=== PATIENT | male | born 1970 | race Caucasian/White ===

== ENCOUNTER → 2017-10-30 | Outpatient (POV) | payer BC, SELFPAY | PROVIDERS: Visit Provider Internal Medicine | DX: Y99.9 Unspecified external cause status (principal) ==

== ENCOUNTER → 2020-04-26 07:47 | Outpatient (CLI) | payer BC, SELFPAY | PROVIDERS: PCP Internal Medicine; Visit Provider Nurse Practitioner Family | DX: I42.1 Obstructive hypertrophic cardiomyopathy (principal); I34.0 Nonrheumatic mitral (valve) insufficiency; E78.2 Mixed hyperlipidemia; I10 Essential (primary) hypertension | CPT/HCPCS: 93306 ==

== ENCOUNTER → 2020-08-25 09:11 | Outpatient (CLI) | payer BC, SELFPAY ==
[2020-08-25 11:24] LABS: Alanine Aminotransferase 46 U/L (12-78); Albumin Level 4.5 g/dl (3.5-5.0); Alkaline Phosphatase 101 U/L (38-126); Anion Gap 14.4 mEq/L (5-15); Aspartate Amino Transferase 39 U/L (17-59); Bilirubin,Direct 0.2 mg/dl (0.0-0.4); Bilirubin,Indirect 0.2 mg/dL (0.0-0.9); Bilirubin,Total 0.4 mg/dl (0.2-1.3); Bilirubin,Unconjugated 0.2 mg/dL (0.0-1.1); Blood Urea Nitrogen 9 mg/dl (9-20); Calcium 9.5 mg/dl (8.4-10.2); Carbon Dioxide 29 mmol/L (22.0-30.0); Chloride 94 mmol/L (98-107); Chol/HDL Ratio 4.3 (1-3.5); Cholesterol 203 mg/dl (140-200); Estimated Glomerular Filt Rate 120 ml/min (>60); GFR (African American) 146 ML/MIN (>60); Glucose 92 mg/dl (74-100); HDL Cholesterol 47 mg/dl (40-60); Potassium 4.4 mmoL/L (3.5-5.1); Sodium 133 mmol/L (136-145); Total Protein,Serum 7.2 g/dl (6.3-8.2); Triglycerides 429 mg/dl (30-150)
[2020-08-25 11:35] LABS: Direct LDL Cholesterol 112.71 mg/dL (100-129)
== END ==
PROVIDERS: Visit Provider Urology
DX: E78.2 Mixed hyperlipidemia (principal); I10 Essential (primary) hypertension; I34.0 Nonrheumatic mitral (valve) insufficiency; I42.1 Obstructive hypertrophic cardiomyopathy
CPT/HCPCS: 36415; 80048; 80061; 80076

== ENCOUNTER → 2021-11-07 07:27 | Outpatient (CLI) | payer BC, SELFPAY | PROVIDERS: PCP Internal Medicine; Visit Provider Urology | DX: I42.1 Obstructive hypertrophic cardiomyopathy (principal); I34.0 Nonrheumatic mitral (valve) insufficiency; I10 Essential (primary) hypertension | CPT/HCPCS: 93306 ==

== ENCOUNTER → 2022-11-13 09:11 | Outpatient (CLI) | payer BC, SELFPAY ==
--- NOTE | 2022-11-13 09:14 | CA_ITS ---
APPROVED REPORT EXAM: Comprehensive 2D, Doppler, and color-flow Echocardiogram Ring Striker: Saray Prince, RCS, RVS Ht: 5 ft 10 in Wt: 207lbs BSA: 2.12 BP: 121/91 mmHg Indications: Syncope, SOa, HTN, HX-alcohol ablation: HOCM, Smoker Echo Enhancing Agent Comments: Poor acoustic window due to lung impedence 2D Dimensions IVSd 0.83 cm LVEF (Visual) 57.20 % PWd 0.85 cm LA Volume 54.90 mL LVDd 4.89 cm LA Volume Index 25.30 mL/m2 (M/F) 16-34 LVDs 3.42 cm M-Mode Dimensions RVDd 2.89 cm (0.9-2.6) LA Diam 3.38 cm (1.9-4.0) LVDd 4.98 cm (3.5-5.7) Ao Diam 3.62 cm (2.0-3.7) LVDs 3.60 cm (3.5-5.7) IVSd 0.80 cm (0.6-1.1) PWd 0.85 cm (0.6-1.1) EF (Teich) 53.50% EPSs 0.81 cm FS 27.70% EDV (Teich) 117.10 mL TAPSE 2.98 (<1.7) ESV (Teich) 54.40 mL LV Diastology E Decel Time 210.00 (160-240 msec) E/A Ratio 1.13 MED E' 7.00 (< 7 cm/sec) MED A' 10.40 cm/s E'/MED E' Ratio 15.39 (>14) LAT E' 9.50 (<10 cm/sec) LAT A' 12.70 cm/s E/LAT E' Ratio 11.34 (>14) Aortic Valve LVOT Max 165.00 (70-110 cm/s) LVOT VTI 30.95 cm AoV Peak Simon. 210.00 (50-130 cm/s) AO Peak GR. 17.60 mmHg AO Mean GR. 9.10 (<5 mmHg) AO VTI 36.91 (18-25 cm) Mitral Valve MV A Velocity 95.00 (40-130 cm/s) E/A Ratio 1.13 MV Decel. Time 210.00 (160-240 ms) MV Mean Gr. 3.00 (<2mmHg) MV PHT 60.00 ms Pulmonary Valve PV Peak Velocity 108.00 (50-150 cm/s) Tricuspid Valve TR P. Velocity 201.00 cm/s RAP Estimate 10.00 mmHg RVSP 26.20 mmHg Left Ventricle Left atrium is mildly enlarged, left ventricle is normal size, estimated ejection fraction 55%, there appears to be moderate hypokinesis involving the basal interventricular septum, there is concentric left ventricular hypertrophy, there is no intracavitary gradient seen at rest in the study. Right Ventricle Right atrium and right ventricle are normal size and contractility. Aortic Valve Aortic valve is minimally thickened and fibrosed there is no aortic stenosis or aortic insufficiency. Mitral Valve Mitral valve has dense mitral calcification, there is no mitral stenosis, there is mild mitral regurgitation, there is no obvious systolic anterior motion of the mitral valve leaflets seen. Tricuspid Valve Tricuspid valve is grossly normal, there is mild tricuspid regurgitation, tricuspid regurgitation jet velocity is inadequate for calculation of the right ventricular systolic pressure. Pulmonic Valve Pulmonic valve is poorly visualized. Great Vessels Aortic root is normal size. Inferior vena cava is not visualized. Pericardium No significant pericardial effusion noted. Conclusion 1. Mildly enlarged left atrium, normal left ventricular size, estimated ejection fraction 55%, there appears to be moderate basal septal hypokinesis, there is concentric left ventricular hypertrophy present, there is no significant gradient seen in the left ventricular outflow tract at rest. Grade 1 diastolic dysfunction seen without tissue Doppler evidence of raise left atrial pressure. 2. Mitral annular calcification, there is no mitral stenosis, there is no obvious systolic anterior motion of the mitral valve leaflets seen, there is mild mitral regurgitation. 3. Mild tricuspid regurgitation. 4. No significant pericardial effusion noted. 5. Inferior vena cava is poorly visualized. Electronically signed by : Polo Gonsalez MD 11/14/2022 06:25:43
== END ==
PROVIDERS: PCP Physician Assistant; Visit Provider Nurse Practitioner
DX: E78.2 Mixed hyperlipidemia (principal); I10 Essential (primary) hypertension; I42.1 Obstructive hypertrophic cardiomyopathy
CPT/HCPCS: 93306

== ENCOUNTER 2023-08-01 19:03 | Inpatient (IN) | payer BC, SELFPAY ==
--- NOTE | 2023-08-01 19:13 | XR_ITS ---
PROCEDURE INFORMATION: Exam: XR Chest Exam date and time: 08/01/2023 8:05 PM Age: 53 years old Clinical indication: Other: Chest pain; Patient HX: Elevated heart rate; Additional info: Nstemi TECHNIQUE: Imaging protocol: Radiologic exam of the chest. Views: 1 view. COMPARISON: No relevant prior studies available. FINDINGS: Lungs: Unremarkable. No consolidation. Pleural spaces: Unremarkable. No pleural effusion. No pneumothorax. Heart/Mediastinum: Unremarkable. No cardiomegaly. Bones/joints: Unremarkable. IMPRESSION: No acute pulmonary findings.
--- NOTE | 2023-08-01 19:21 | PC.NURSE ---
1545 received report from Mei at [facility]. 1800 [facility] called and stated pt is enroute. 1905 arrived on unit via stretcher with EMS
--- NOTE | 2023-08-01 19:33 | ECG_ITS ---
APPROVED REPORT Exam: Resting ECG HR:97 bpm ECG Measurements Heart Rate 97 AXES NM 170 P 61 QRSd 95 QRS 36 QT 332 T 76 QTc 386 Conclusion SINUS RHYTHM WITH FREQUENT VENTRICULAR PREMATURE COMPLEXES IN A BIGEMINAL PATTERN NONSPECIFIC T-WAVE ABNORMALITY ABNORMAL RHYTHM ECG UNCONFIRMED REPORT Electronically signed by : Rian Joyce MD 08/02/2023 07:49:45
[2023-08-01 19:34] VITALS: BMI 28.8
--- NOTE | 2023-08-01 19:49 | PC.NURSE ---
pt arrived to floor via ems @[id number]
--- NOTE | 2023-08-01 19:56 | EXP.HP ---
History of Present Illness *Admission Date: 08/01/23 *Reason for visit:: SVT/NSTEMI *History of present illness: 53 year old male sent to [facility] for dircet admission from the ED at [facility]. The ED physician consulted Dr. Crow and Dr. Mendiola for the direct admission. The pt states that he presented to the ED with c/o CP that radiated down his left arm. He states that last night he started to feel chills and felt sick. He went to the [employer] this afternoon to buy a thermometer to check his temperature. When he came out of the [employer] store his CP started and felt that his heart was palpating. He went to the [facility] ED and was found to be in SVT with a heart rate in the 220's. According to [facility] chart the pt was given 6mg of Adenosine without a response. Pt states a repeated dose was given but is not in chart. The patient was then given 10 mg Iv metoprolol with a HR change from 234 to 72. He was given 324 ASA and started on a heparin gtt. His post EKG was sinus tachycardia with a HR of 101. On arrival to [facility] the pt is sinus rhythm with bigeminy. He denies any chest pain. C/o coughing and wheezing. PMHX of alcohol ablation in 2018, hypertrophic obstructive cardiomyopathy, HTN, HLD, and tobacco abuse. [facility] Disclaimer: The information contained in this section may have been updated after the patient was seen, as this information can be updated by other users. Medical History (Updated 08/02/23 @ 11:13 by Sukh Mendiola MD) Colonoscopy planned HLD (hyperlipidemia) Hypertrophic obstructive cardiomyopathy (HOCM) Mitral regurgitation Family History (Updated 08/01/23 @ 19:37 by Harleen Delgado RN) Mitral regurgitation Social History (Updated 08/01/23 @ 19:39 by Harleen Delgado RN) Smoking Status: Current every day smoker tobacco type: cigarettes packs per day: 1 alcohol intake: former substance use type: denies use current occupational status: employed Travel in the last 8 weeks: Inside the [place] Review of Systems Review of Systems Review of systems:: pertinent systems reviewed and negative unless documented below Constitutional Constitutional: Reports system reviewed and no additional complaints, except as documented Eyes Eyes: Reports system reviewed and no additional complaints, except as documented ENT Ears, Nose, Mouth, and Throat: Reports system reviewed and no additional complaints, except as documented *Cardiovascular Cardiovascular: Reports chest pain with activity and Reports dyspnea on exertion *Respiratory Respiratory: Reports dyspnea on exertion *Gastrointestinal Gastrointestinal: Reports system reviewed and no additional complaints, except as documented *Genitourinary Genitourinary: Reports system reviewed and no additional complaints, except as documented *Musculoskeletal Musculoskeletal: Reports system reviewed and no additional complaints, except as documented *Neurologic Neurologic: Reports system reviewed and no additional complaints, except as documented Meds Home Medications and Allergies Home Medications Medication Instructions Recorded Confirmed Type triamterene 75 1 tab PO DAILY Fluid 05/07/18 08/01/23 History mg-hydrochlorothiazide 50 mg tablet valacyclovir 500 mg tablet 500 mg PO DAILY Infection 05/07/18 08/01/23 History atorvastatin 20 mg tablet 20 mg PO DAILY Cholesterol 07/31/18 08/01/23 History aspirin 81 mg capsule 81 mg PO DAILY Heart Health 08/01/23 08/01/23 History lisinopril 20 mg tablet 20 mg PO DAILY High Blood Pressure 08/01/23 08/02/23 History metoprolol tartrate 100 mg tablet 100 mg PO DAILY High Blood Pressure 08/01/23 08/02/23 History New Prescriptions to Start Prescriptions: Allergies Allergy/AdvReac Type Severity Reaction Status Date / Time No Known Allergies Allergy Verified 05/10/23 09:38 Exam Data for Last 24 hours I & O for Last 24 hours: Intake & Output 07/29/23 07/30/23 07/31/23 08/01/23 23:59 23:59 23:59 23
[2023-08-01 20:00] VITALS: BP 111/81; PULSE 100; PULSE 98; RESP 22; TEMP 36.9; O2SAT 95
[2023-08-01 20:34] LABS: Anion Gap 16.7 mEq/L (5-15); Blood Urea Nitrogen 10 mg/dl (9-20); Calcium 8.5 mg/dl (8.4-10.2); Carbon Dioxide 23 mmol/L (22.0-30.0); Chloride 98 mmol/L (98-107); Creatinine Clearance Estimated 161 mL/min (50-200); Estimated Glomerular Filt Rate 119 ml/min (>60); GFR (African American) 144 ML/MIN (>60); Glucose 135 mg/dl (74-100); Potassium 3.7 mmoL/L (3.5-5.1); Sodium 134 mmol/L (136-145)
[2023-08-01 20:42] LABS: NT Pro Brain Natriuretic Pep. 719 pg/mL (0-125)
[2023-08-01 20:45] LABS: Basophils # 0.1 K/mm3 (0-0.2); Basophils % 0.2 % (0.1-2.0); Eosinophils # 0.2 K/mm3 (0.0-0.4); Eosinophils % 0.5 % (0.1-12.0); Hematocrit 50.5 % (42.0-52.0); Hemoglobin 16.6 g/dL (14.1-18.0); Lymphocytes # 1.3 K/mm3 (0.7-4.5); Lymphocytes % 4.2 % (10-50); Mean Corpuscular HGB Conc 32.8 g/dL (31.8-35.4); Mean Corpuscular Hemoglobin 31.5 pg (27.0-31.2); Mean Platelet Volume 9.3 fl (7.4-10.4); Monocytes # 1.1 K/mm3 (0.1-1.0); Monocytes % 3.7 % (1.7-9.3); Neutrophils # 27.8 K/mm3 (1.8-7.8); Neutrophils % 91.4 % (37.0-80.0); Platelet Count 263 K/mm3 (142-424); Red Blood Count 5.26 M/mm3 (4.60-6.20); Red Cell Distribution Width 13.1 % (11.5-17.5); White Blood Count 30.4 K/mm3 (4.8-10.8)
[2023-08-01 20:46] LABS: PTT Heparin (inpatient only) 30.2 Seconds (23.6-34.0)
[2023-08-01 20:48] LABS: MANUAL DIFFERENTIAL MANUAL DIFFERENTIAL (MANUAL DIFF)
[2023-08-01 21:01] LABS: Lymphocytes % 9 % (10-50); Monocytes % 5 % (2-9); Neutrophils % 86 % (42-76); Platelet Estimate Normal; RBC Morphology Normal; Total Cells Counted 100
[2023-08-01 21:16] LABS: Adenovirus,PCR Not Detected (NotDetected); Bordetella Pertussis Not Detected (NotDetected); Chlamydophila Pneumoniae, PCR Not Detected (NotDetected); Coronavirus 19, PCR Not Detected (NotDetected); Coronavirus 229E Not Detected (NotDetected); Coronavirus NL63 Not Detected (NotDetected); Coronavirus OC43 Not Detected (NotDetected); Coronovirus HKU1,PCR Not Detected (NotDetected); Human Metapneumovirus Not Detected (NotDetected); Influenza A, PCR Not Detected (NotDetected); Influenza AH1, 2009 Not Detected (NotDetected); Influenza AH1, PCR Not Detected (NotDetected); Influenza AH3,PCR Not Detected (NotDetected); Influenza B, PCR Not Detected (NotDetected); Mycoplasma Pneumoniae, PCR Not Detected (NotDetected); Parainfluenza 1, PCR Not Detected (NotDetected); Parainfluenza 2, PCR Not Detected (NotDetected); Parainfluenza 3, PCR Not Detected (NotDetected); Parainfluenza 4, PCR Not Detected (NotDetected); Respiratory Syncytial Virus Not Detected (NotDetected); Rhinovirus/Enterovirus Not Detected (NotDetected)
[2023-08-01 22:00] VITALS: BP 151/67; PULSE 98; RESP 18; O2SAT 100
--- NOTE | 2023-08-01 22:43 | EXP.EVENT.NO ---
Spoke with Dr. Crow informing him of troponin of 16 and EKG ectopy. Pt remains asymptomatic. Will given additional 50 mg metoprolol tartrate and continue the hep gtt for demand ischemia.
[2023-08-01 23:03] LABS: Lactic Acid 2.3 mmol/L (0.7-2.1)
--- NOTE | 2023-08-01 23:39 | EXP.SEPSISRE ---
[facility] Tissue Perfusion Eval Sepsis Re-Evaluation Performed: Yes Date Performed: 08/01/23 Time Performed: 23:39
[2023-08-02] VITALS (25 sets, daily range): BP systolic 86–127; BP diastolic 42–87; PULSE 76–100; RESP 11–22; TEMP 36.7–37.2; O2SAT 95–99; BMI 28.5
[2023-08-02 02:45] LABS: Reflex Lactic Add Lactic Reflex
[2023-08-02 03:13] LABS: Chloride 100 mmol/L (98-107)
[2023-08-02 03:14] LABS: Potassium 3.4 mmoL/L (3.5-5.1); Sodium 131 mmol/L (136-145)
[2023-08-02 03:16] LABS: Alanine Aminotransferase 36 U/L (12-78); Albumin Level 3.3 g/dl (3.5-5.0); Albumin/Globulin Ratio 1.4 (1.1-1.8); Alkaline Phosphatase 77 U/L (38-126); Anion Gap 10.4 mEq/L (5-15); Aspartate Amino Transferase 96 U/L (17-59); Bilirubin,Total 0.4 mg/dl (0.2-1.3); Blood Urea Nitrogen 11 mg/dl (9-20); Calcium 7.7 mg/dl (8.4-10.2); Carbon Dioxide 24 mmol/L (22.0-30.0); Cholesterol 142 mg/dl (140-200); Creatinine Clearance Estimated 188 mL/min (50-200); Estimated Glomerular Filt Rate 142 ml/min (>60); GFR (African American) 172 ML/MIN (>60); Globulin 2.4 g/dL (1.3-3.2); Glucose 127 mg/dl (74-100); Total Protein,Serum 5.7 g/dl (6.3-8.2); Triglycerides 77 mg/dl (30-150); VLDL Cholesterol 15 mg/dL (0-40)
[2023-08-02 03:17] LABS: Chol/HDL Ratio 3.3 (1-3.5); HDL Cholesterol 43 mg/dl (40-60)
[2023-08-02 03:18] LABS: Basophils % 0.2 % (0.1-2.0); Eosinophils # 0.1 K/mm3 (0.0-0.4); Eosinophils % 0.3 % (0.1-12.0); Lymphocytes # 1.7 K/mm3 (0.7-4.5); Lymphocytes % 7.2 % (10-50); Mean Corpuscular HGB Conc 32.7 g/dL (31.8-35.4); Mean Corpuscular Hemoglobin 31.5 pg (27.0-31.2); Mean Corpuscular Volume 96.4 fl (80-94); Mean Platelet Volume 8.9 fl (7.4-10.4); Monocytes # 1.3 K/mm3 (0.1-1.0); Monocytes % 5.4 % (1.7-9.3); Neutrophils # 20.6 K/mm3 (1.8-7.8); Neutrophils % 86.9 % (37.0-80.0); Platelet Count 213 K/mm3 (142-424); Red Blood Count 4.67 M/mm3 (4.60-6.20); Red Cell Distribution Width 13.2 % (11.5-17.5); White Blood Count 23.8 K/mm3 (4.8-10.8)
[2023-08-02 03:26] LABS: Hemoglobin 14.7 g/dL (14.1-18.0)
[2023-08-02 03:28] LABS: Direct LDL Cholesterol 70.62 mg/dL (100-129)
[2023-08-02 03:38] LABS: PTT Heparin (inpatient only) 46.8 Seconds (23.6-34.0)
--- NOTE | 2023-08-02 07:31 | HMH.PHAINT1 ---
Pharmacy Intervention Comments: MEDICATION RECONCILIATION COMPLETED ON PATIENT USING EXTERNAL FILL HISTORY FROM PHARMACY AND LIST FROM CARDIOLOGY OFFICE. -CARLOS HAYES, ASHAD
--- NOTE | 2023-08-02 07:54 | EXP.ACUTE.PN ---
Subjective *Date: 08/02/23 *Time: 15:17 Interval history: Patient denying any chest pain this morning. Stable on room air. N.p.o. pending evaluation by cardiology and surgery. Afebrile. Complaining of pain left side of scrotum. Drainage from lesion in groin. Medical Exam Vital signs and Labs for Last 24 Hours: Vital Signs Temp Pulse Pulse Resp BP Pulse Ox O2 Del Method 08/02/23 07:31 98.6 F 08/02/23 04:00 100 H 08/02/23 00:00 98.9 F 08/02/23 00:00 Room Air 08/02/23 06:00 86 14 86/51 L 97 Room Air 08/02/23 05:00 Room Air 08/02/23 04:00 98.1 F 92 H 11 L 112/78 95 Room Air 08/02/23 04:00 Room Air 08/02/23 03:00 Room Air 08/02/23 00:00 90 08/01/23 20:00 98.4 F 98 H 22 111/81 95 Room Air 08/01/23 22:00 98 H 18 151/67 H 100 Room Air 08/01/23 23:00 Room Air 08/01/23 21:00 Room Air 08/02/23 02:00 92 H 22 110/79 95 Room Air 08/02/23 01:00 Room Air 08/02/23 00:00 89 20 113/77 96 Room Air 08/01/23 20:00 Room Air 08/01/23 20:00 100 H Intake and Output 08/01/23 08/01/23 08/02/23 15:59 23:59 07:59 Intake Total 0 / 0 Output Total 250 / 250 400 / 400 Balance -250 / -250 -400 / -400 Intake: Intake, Oral Amount 0 / 0 Output: Output, Urine Amount 250 / 250 400 / 400 Other: Number of Unmeasured Voids 1 0 Weight 91.038 kg 90.52 kg Patient Weight 08/02/23 23:59 Weight 90.52 kg Laboratory Results - last 24 hr 08/01/23 20:10: WBC 30.4 H*, RBC 5.26, Hgb 16.6, Hct 50.5, MCV 96.0 H, MCH 31.5 H, MCHC 32.8, RDW 13.1, Plt Count 263, MPV 9.3, Neut % (Auto) 91.4 H, Lymph % (Auto) 4.2 L, [place] % (Auto) 3.7, Eos % (Auto) 0.5, Baso % (Auto) 0.2, Neut # (Auto) 27.8 H, Lymph # (Auto) 1.3, [place] # (Auto) 1.1 H, Eos # (Auto) 0.2, Baso # (Auto) 0.1, Total Counted 100, Neutrophils % (Manual) 86 H, Lymphocytes % (Manual) 9 L, Monocytes % (Manual) 5, Platelet Estimate Normal, RBC Morphology Normal, APTT 30.2, Sodium 134 L, Potassium 3.7, Chloride 98, Carbon Dioxide 23, Anion Gap 16.7 H, BUN 10, Creatinine 0.70, Estimated Creat Clear 161, Estimated GFR 119, Est GFR ( Amer) 144, Glucose 135 H, Calcium 8.5, Magnesium 2.0, Troponin I 16.00 H, NT-Pro-B Natriuret Pep 719 H 08/01/23 21:10: Chlamy pneumoniae PCR Not detected, Adenovirus (PCR) Not detected, B. pertussis DNA (PCR) Not detected, Coronavirus OC43 (PCR) Not detected, Coronavirus HKU1 (PCR) Not detected, Coronavirus 229E (PCR) Not detected, SARS-CoV-2 (PCR) Not detected, Coronavirus NL63 (PCR) Not detected, Human Metapneumovir PCR Not detected, Influenza A (H1) PCR Not detected, Influ A (H1N1/09) PCR Not detected, Influenza A (H3) PCR Not detected, Influenza Type A (PCR) Not detected, Influenza Type B (PCR) Not detected, M. pneumoniae (PCR) Not detected, Parainfluenza 1 (PCR) Not detected, Parainfluenza 2 (PCR) Not detected, Parainfluenza 3 (PCR) Not detected, Parainfluenza 4 (PCR) Not detected, RSV (PCR) Not detected, Entero/Rhino (PCR) Not detected 08/01/23 22:10: Troponin I 18.30 H 08/01/23 22:40: Lactate 2.3 H 08/02/23 00:36: Troponin I 18.80 H 08/02/23 02:48: WBC 23.8 H*, RBC 4.67, Hgb 14.7 D, Hct 45.0, MCV 96.4 H, MCH 31.5 H, MCHC 32.7, RDW 13.2, Plt Count 213, MPV 8.9, Neut % (Auto) 86.9 H, Lymph % (Auto) 7.2 L, [place] % (Auto) 5.4, Eos % (Auto) 0.3, Baso % (Auto) 0.2, Neut # (Auto) 20.6 H, Lymph # (Auto) 1.7, [place] # (Auto) 1.3 H, Eos # (Auto) 0.1, Baso # (Auto) 0.0, APTT 46.8 H, Sodium 131 L, Potassium 3.4 L, Chloride 100, Carbon Dioxide 24, Anion Gap 10.4, BUN 11, Creatinine 0.60 L, Estimated Creat Clear 188, Estimated GFR 142, Est GFR ( Amer) 172, Glucose 127 H, Lactate 1.0, Calcium 7.7 L, Magnesium 2.0, Total Bilirubin 0.4, AST 96 H, ALT 36, Alkaline Phosphatase 77, Total Protein 5.7 L, Albumin 3.3 L, Globulin 2.4, Albumin/Globulin Ratio 1.4, Triglycerides 77, Cholesterol 142, LDL Cholesterol Direct 70.62 L, VLDL Cholesterol 15, HDL Cho
--- NOTE | 2023-08-02 08:00 | EXP.SURG.CON ---
History of Present Illness *Admission Date: 08/01/23 *Reason for visit:: Sepsis, Groin abscess, Source control question *History of present illness: Patient is a 53-year-old male from [place] who had presented to the emergency department at [facility] with complaints of chest pain radiating down his left arm. He also had chills and felt sick. He described heart palpitations. Upon presentation to the emergency department in [facility] he was found to be in SVT with heart rate of 220. Reportedly he was given 6 mg of adenosine without response. He was given intravenous beta-blockers which resulted in rate control. He was given aspirin and started on heparin drip. Dr. Crow was contacted and arrangements were made for direct admission to the hospitalist service for management of SVT and non-STEMI. Patient apparently has history of previous ablation, hypertrophic obstructive cardiomyopathy, hypertension, hyperlipidemia and tobacco abuse. He is a smoker. He was admitted for inpatient management. He does have findings consistent with sepsis and physical exam revealed scrotal abscess. He had a leukocytosis of 30,000. He is on a heparin drip for cardiac ischemia and troponin trended to 16. Patient states that the area in the scrotum has been present for up to 2 years. He has no tenderness. He has had some drainage. [facility] Disclaimer: The information contained in this section may have been updated after the patient was seen, as this information can be updated by other users. Medical History (Updated 08/01/23 @ 21:27 by SAUL Romo) Colonoscopy planned HLD (hyperlipidemia) Hypertrophic obstructive cardiomyopathy (HOCM) Mitral regurgitation Family History (Updated 08/01/23 @ 19:37 by Harleen Delgado RN) Mitral regurgitation Social History (Updated 08/01/23 @ 19:39 by Harleen Delgado RN) Smoking Status: Current every day smoker tobacco type: cigarettes packs per day: 1 alcohol intake: former substance use type: denies use current occupational status: employed Travel in the last 8 weeks: [place] the [place] Review of Systems *Neurologic Neurologic: Reports system reviewed and no additional complaints, except as documented Meds Home Medications and Allergies Home Medications Medication Instructions Recorded Confirmed Type triamterene 75 1 tab PO DAILY Fluid 05/07/18 08/01/23 History mg-hydrochlorothiazide 50 mg tablet valacyclovir 500 mg tablet 500 mg PO DAILY Infection 05/07/18 08/01/23 History atorvastatin 20 mg tablet 20 mg PO DAILY Cholesterol 07/31/18 08/01/23 History aspirin 81 mg capsule 81 mg PO DAILY Heart Health 08/01/23 08/01/23 History lisinopril 20 mg tablet 20 mg PO DAILY High Blood Pressure 08/01/23 08/02/23 History metoprolol tartrate 100 mg tablet 100 mg PO DAILY High Blood Pressure 08/01/23 08/02/23 History New Prescriptions to Start Prescriptions: Allergies Allergy/AdvReac Type Severity Reaction Status Date / Time No Known Allergies Allergy Verified 05/10/23 09:38 Exam (Inpt) Vital signs and Labs for Last 24 Hours: Temp Pulse Resp BP Pulse Ox O2 Del Method 98.6 F 86 14 86/51 L 97 Room Air 08/02/23 07:31 08/02/23 06:00 08/02/23 06:00 08/02/23 06:00 08/02/23 06:00 08/02/23 06:00 Laboratory Results - last 24 hr 08/01/23 20:10: WBC 30.4 H*, RBC 5.26, Hgb 16.6, Hct 50.5, MCV 96.0 H, MCH 31.5 H, MCHC 32.8, RDW 13.1, Plt Count 263, MPV 9.3, Neut % (Auto) 91.4 H, Lymph % (Auto) 4.2 L, [facility] % (Auto) 3.7, Eos % (Auto) 0.5, Baso % (Auto) 0.2, Neut # (Auto) 27.8 H, Lymph # (Auto) 1.3, [facility] # (Auto) 1.1 H, Eos # (Auto) 0.2, Baso # (Auto) 0.1, Total Counted 100, Neutrophils % (Manual) 86 H, Lymphocytes % (Manual) 9 L, Monocytes % (Manual) 5, Platelet Estimate Normal, RBC Morphology Normal, APTT 30.2, Sodium 134 L, Potassium 3.7, Chloride 98, Carbon Dioxide 23, Anion Gap 16.7 H, BUN 10, Creatinine 0.70, Estimated Creat Clear 161,
--- NOTE | 2023-08-02 08:08 | HMH.PHAHEP ---
[facility] Pharmacy Heparin Dosing Demographic Data Admission date:: 08/01/23 Date: 08/02/23 Time: 08:09 Allergies Allergy/AdvReac Type Severity Reaction Status Date / Time No Known Allergies Allergy Verified 05/10/23 09:38 Height: 1.78 m Weight: 90.52 kg Indication Medication therapy:: Heparin Current Indications:: NSTEMI - LOW DOSE Current Active Problems (Updated 08/02/23 @ 09:02 by LEX Underwood) Scrotal abscess (Acute) Sepsis (Acute) NSTEMI (non-ST elevated myocardial infarction) (Acute) SVT (supraventricular tachycardia) (Acute) HLD (hyperlipidemia) (Acute) HTN (hypertension) (Chronic) Mitral regurgitation (Chronic) Hypertrophic obstructive cardiomyopathy (HOCM) (Chronic) CVA?: No Bleeding problem?: No Kidney disease?: No OK?: Yes Additional History:: NSTEMI, SVT, HLD, HTN Desired PTT range:: 50-75 seconds Comments:: BASELINE: 30.2 SECONDS (PATIENT ARRIVED FROM OUTSIDE HOSPITAL ALREADY ON DRIP) Labs Anticoagulation Lab Results:: 08/01/23 08/02/23 20:10 02:48 Hgb 16.6 14.7 D Hct 50.5 45.0 Plt Count 263 213 Monitoring Dose Monitor 1: Date: 08/01/23 Time: 20:10 PTT Result:: 30.2 SECONDS Infusion Rate:: INCREASED HEPARIN DRIP RATE TO 1350 UNITS/HOUR = 27 ML/HOUR AND BOLUSED 4000 UNITS IV. Comment:: PATIENT ARRIVED FROM OUTSIDE FACILITY ON HEPARIN DRIP AT 1000 UNITS/HOUR = 20 ML/HOUR Dose Monitor 2: Date: 08/02/23 Time: 02:48 PTT Result:: 46.8 SECONDS Infusion Rate:: INCREASED HEPARIN DRIP RATE TO 1550 UNITS/HOUR = 31 ML/HOUR AND BOLUSED 3000 UNITS HEPARIN IV Core Measures Is INR > or = 2 at discharge?: No Most Recent Labs:: Laboratory Results - last 24 hr 08/01/23 20:10: WBC 30.4 H*, RBC 5.26, Hgb 16.6, Hct 50.5, MCV 96.0 H, MCH 31.5 H, MCHC 32.8, RDW 13.1, Plt Count 263, MPV 9.3, Neut % (Auto) 91.4 H, Lymph % (Auto) 4.2 L, [place] % (Auto) 3.7, Eos % (Auto) 0.5, Baso % (Auto) 0.2, Neut # (Auto) 27.8 H, Lymph # (Auto) 1.3, [place] # (Auto) 1.1 H, Eos # (Auto) 0.2, Baso # (Auto) 0.1, Total Counted 100, Neutrophils % (Manual) 86 H, Lymphocytes % (Manual) 9 L, Monocytes % (Manual) 5, Platelet Estimate Normal, RBC Morphology Normal, APTT 30.2, Sodium 134 L, Potassium 3.7, Chloride 98, Carbon Dioxide 23, Anion Gap 16.7 H, BUN 10, Creatinine 0.70, Estimated Creat Clear 161, Estimated GFR 119, Est GFR ( Amer) 144, Glucose 135 H, Calcium 8.5, Magnesium 2.0, Troponin I 16.00 H, NT-Pro-B Natriuret Pep 719 H 08/01/23 21:10: Chlamy pneumoniae PCR Not detected, Adenovirus (PCR) Not detected, B. pertussis DNA (PCR) Not detected, Coronavirus OC43 (PCR) Not detected, Coronavirus HKU1 (PCR) Not detected, Coronavirus 229E (PCR) Not detected, SARS-CoV-2 (PCR) Not detected, Coronavirus NL63 (PCR) Not detected, Human Metapneumovir PCR Not detected, Influenza A (H1) PCR Not detected, Influ A (H1N1/09) PCR Not detected, Influenza A (H3) PCR Not detected, Influenza Type A (PCR) Not detected, Influenza Type B (PCR) Not detected, M. pneumoniae (PCR) Not detected, Parainfluenza 1 (PCR) Not detected, Parainfluenza 2 (PCR) Not detected, Parainfluenza 3 (PCR) Not detected, Parainfluenza 4 (PCR) Not detected, RSV (PCR) Not detected, Entero/Rhino (PCR) Not detected 08/01/23 22:10: Troponin I 18.30 H 08/01/23 22:40: Lactate 2.3 H 08/02/23 00:36: Troponin I 18.80 H 08/02/23 02:48: WBC 23.8 H*, RBC 4.67, Hgb 14.7 D, Hct 45.0, MCV 96.4 H, MCH 31.5 H, MCHC 32.7, RDW 13.2, Plt Count 213, MPV 8.9, Neut % (Auto) 86.9 H, Lymph % (Auto) 7.2 L, [place] % (Auto) 5.4, Eos % (Auto) 0.3, Baso % (Auto) 0.2, Neut # (Auto) 20.6 H, Lymph # (Auto) 1.7, [place] # (Auto) 1.3 H, Eos # (Auto) 0.1, Baso # (Auto) 0.0, APTT 46.8 H, Sodium 131 L, Potassium 3.4 L, Chloride 100, Carbon Dioxide 24, Anion Gap 10.4, BUN 11, Creatinine 0.60 L, Estimated Creat Clear 188, Estimated GFR 142, Est GFR ( Amer) 172, Glucose 127 H, Lactate 1.0, Calcium 7.7 L, Magnesium 2.0, Total Bilirubin 0.4, AST 96 H, ALT 36, [place]
--- NOTE | 2023-08-02 08:32 | EXP.CARD.CON ---
History of Present Illness History of Present Illness Consult date: 08/02/23 Requesting physician: Sukh Mendiola Consult reason: chest pain Chief complaint: SVT, elevated troponins Additional Medical History:: 1. HOCM A. [facility], approx 2017, reportedly normal per patient, Dr. Crow in [place], [place] B. Septal alcohol ablation, Dr. Ambrocio, , 2017 2. Tobacco use A. 1 ppd for >30 yrs 3. SVT, 08/01/2023 in setting of sepsis A. Converted with Iv adenosine and metoprolol B. scrotal abscess/hydranitis C. Mitral Valve mass noted on echo (present back to 2020 echo but not seen on 2019 echo) D. PRAKASH, 2018, 1. Moderately enlarged left atrium, normal left ventricular size, visually estimated ejection fraction 50% with dyskinetic proximal interventricular ventricular septum. There is no intracavitary gradient on increased velocity seen in the left ventricular outflow tract. 2. Mild mitral and tricuspid regurgitation 3. No significant pericardial effusion noted. 4. Agitated saline contrast study fails to identify intracardiac shunt. 5. There is no aneurysm or dissection of the ascending, arch and descending thoracic aorta History of present illness: 53 year old male sent to [facility] for direct admission from the ED at [facility]. The ED physician consulted Dr. Crow and Dr. Mendiola for the direct admission. The pt states that he presented to the ED with c/o CP that radiated down his left arm. He states that last night he started to feel chills and felt sick. He went to the [employer] store this afternoon to buy a thermometer to check his temperature. When he came out of the [employer] store his CP started and felt that his heart was palpating. He went to the [facility] ED and was found to be in SVT with a heart rate in the 220's. According to [facility] chart the pt was given 6mg of Adenosine without a response. Pt states a repeated dose was given but is not in chart. The patient was then given 10 mg Iv metoprolol with a HR change from 234 to 72. He was given 324 ASA and started on a heparin gtt. His post EKG was sinus tachycardia with a HR of 101. On arrival to [facility] the pt is sinus rhythm with bigeminy. He denies any chest pain. C/o coughing and wheezing. PMHX of alcohol ablation in 2018, hypertrophic obstructive cardiomyopathy, HTN, HLD, and tobacco abuse. The above per SAUL Romo The above events confirmed with patient. He remains in sinus rhythm today. Draining scrotal infection off and on for 2 yrs for which he has seen Urology with antibiotic treatment and talk of possible surgery. Fever and chills for 2 days but not feeling well for one week. Troponins elevated here with range of 16-18.8 this AM. No further chest pain or left arm pain. Concern for other source of infection (possible endocarditis) due to mitral valve abnormality on echo today (previous echo in 2020 also noted this same abnormality). [facility] Disclaimer: The information contained in this section may have been updated after the patient was seen, as this information can be updated by other users. Medical History (Updated 08/02/23 @ 09:02 by LEX Underwood) Colonoscopy planned HLD (hyperlipidemia) Hypertrophic obstructive cardiomyopathy (HOCM) Mitral regurgitation Family History (Updated 08/01/23 @ 19:37 by Harleen Delgado RN) Mitral regurgitation Social History (Updated 08/01/23 @ 19:39 by Harleen Delgado RN) Smoking Status: Current every day smoker tobacco type: cigarettes packs per day: 1 alcohol intake: former substance use type: denies use current occupational status: employed Travel in the last 8 weeks: Inside the [place] Review of Systems Review of Systems Review of systems:: pertinent systems reviewed and negative unless documented below Constitutional Constitutional: Reports chills and Reports fever(s) *Cardiovascular Cardiovascular: Reports chest pain, Denies dyspnea, Reports palpitations and Reports rapid heart ra
--- NOTE | 2023-08-02 08:48 | CT_ITS ---
FINAL REPORT TECHNIQUE: Axial images through the abdomen and pelvis were performed without contrast. This study was performed with techniques to keep radiation doses as low as reasonably achievable, (ALARA). Individualized dose reduction techniques using automated exposure control or adjustment of mA and/or kV according to the patient's size were employed. CLINICAL HISTORY: groin abscess FINDINGS: Abdomen: The lung bases are clear. There is diffuse fatty infiltration of the liver. The gallbladder is present. There are calcified granulomas in the spleen. The pancreas, adrenals and kidneys are unremarkable. There are small scattered lymph nodes in the inguinal regions bilaterally measuring up to 1.8 cm. No fluid collection or inflammation is identified. Pelvis: The urinary bladder is normal. There are few small scattered diverticula in the sigmoid colon. The appendix is normal. There is no pelvic mass or inflammation. IMPRESSION: No definite evidence of abscess. Fatty liver. Sigmoid diverticulosis without evidence of diverticulitis. Reviewed, Interpreted and Dictated by Dileep Douglas MD Transcribed by Zara Castellano Authenticated and . [facility]
--- NOTE | 2023-08-02 10:01 | ECG_ITS ---
APPROVED REPORT Exam: Resting ECG HR:80 bpm ECG Measurements Heart Rate 80 AXES DC 180 P 56 QRSd 94 QRS 53 QT 359 T 71 QTc 395 Conclusion SINUS RHYTHM NONSPECIFIC ST & T-WAVE ABNORMALITY BORDERLINE ECG UNCONFIRMED REPORT Electronically signed by : Rian Joyce MD 08/03/2023 09:56:20
[2023-08-02 10:57] LABS: PTT Heparin (inpatient only) 43.3 Seconds (23.6-34.0)
--- NOTE | 2023-08-02 11:50 | PC.NURSE ---
spoke with dr edgar at approx 0840. ok to transfer out of stepdown
--- NOTE | 2023-08-02 14:19 | PC.NURSE ---
pt off the floor with Richie Neri RN to radiology.
--- NOTE | 2023-08-02 15:30 | PC.NURSE ---
pt admin Metoprolol 50mg in preparation for ct angio of coronary artery at 1130. notified Randal Quintana at 1235 that pt heart rate was still in the 80's. per randal quintana admin 5mg iv metoprolol. pesticide use medical coordinator at 1240. 1257 notified riley that pt hr still in the 80's following pesticide use medical coordinator. states he will talk with rio for new orders. 1301 call returned by riley, order received for 10 mg iv metoprolol. pesticide use medical coordinator at 1318 after med brought from pharmacy. notified riley at 1326 that pt hr still in the upper 70's low 80's. new order received for 10 mg iv metoprolol. (per nelly in pharmacy total of 30mg iv metoprolol able to be admin per orders/guidelines). 1345 pesticide use medical coordinator by yaa fisher. notified rilye at 1352 that pt heart rate is still in the 70's - 80's. pt able to receive 5mg iv metoprolol before max dose reached. per riley admin 5mg iv metoprolol while pt on table in ct scanner, ok if pt goal heart rate was not reached. pt transported to scanner at 1355. pt returned to floor at 1410. [address] fox.
--- NOTE | 2023-08-02 15:47 | PC.NURSE ---
late entry: 1100 notified j andrew in pharmacy of ptt 43.3. heparin drip has already been dc and transitioned to lovenox.
--- NOTE | 2023-08-02 15:52 | PC.NURSE ---
pt lungs are clear throughout, bowel sounds are active in all quads. nad noted. a/o x 4, family at bedside this shift. no ectopy or SVT noted this shift. pt has rested in bed.
[2023-08-02 17:01] LABS: Microscopic, Urine URINE MICROSCOPIC (MICROSCOPIC)
[2023-08-02 17:18] LABS: Appearance,Urine CLEAR (Clear); Bilirubin,Urine Negative (Negative); Blood, Urine Negative (Negative); Color,Urine YELLOW (Yellow); Glucose,Urine (UA) Negative (Negative); Ketones,Urine Negative (Negative); Leukocyte Esterase,Urine Negative (Negative); Nitrate,Urine Negative (Negative); PH,Urine 6.5 (5.0-8.5); Protein,Urine TRACE (Negative); Urobilinogen,Urine >=8.0 EU/dl (0.2)
[2023-08-02 18:12] LABS: Squamous Epithelial Cell,Urine Occasional #/hpf (0-5)
--- NOTE | 2023-08-02 20:11 | CA_ITS ---
APPROVED REPORT EXAM: Comprehensive 2D, Doppler, and color-flow Echocardiogram Rail Car Painter/Sandblaster: Saray Prince, RCS, RVS Ht: 5 ft 10 in Wt: 200lbs BSA: 2.09 BP: 86/51 mmHg Indications: febrile, SVT, NSTEMI, sepsis-scrotal abcess, HOCM, cp, htnSMOKER Echo Enhancing Agent Comments: POOR ACOUSTICS PARASTERNALLY DUE TO LUNG IMPEDENCE/BODY HABITUS 2D Dimensions IVSd 1.40 cm LVEF (Visual) 47.90 % PWd 1.31 cm LA Volume 64.00 mL LVDd 4.93 cm LA Volume Index 29.90 mL/m2 (M/F) 16-34 LVDs 3.74 cm Aortic Root 3.08 cm LVOT 2.57 cm (M/F) 1.5-2.5 M-Mode Dimensions LA Diam 4.12 cm (1.9-4.0) Ao Diam 3.07 cm (2.0-3.7) TAPSE 2.66 (<1.7) LV Diastology E Decel Time 157.00 (160-240 msec) E/A Ratio 1.78 MED E' 9.10 (< 7 cm/sec) MED A' 6.50 cm/s E'/MED E' Ratio 13.89 (>14) LAT E' 10.10 (<10 cm/sec) LAT A' 6.70 cm/s E/LAT E' Ratio 12.51 (>14) Aortic Valve LVOT Max 136.00 (70-110 cm/s) LVOT VTI 25.82 cm AoV Peak Simon. 164.00 (50-130 cm/s) AO Peak GR. 10.80 mmHg AO Mean GR. 5.30 (<5 mmHg) AO VTI 26.12 (18-25 cm) JASMEET (VTI) 5.13 (2.5-4.5 cm2) Mitral Valve MV A Velocity 71.00 (40-130 cm/s) E/A Ratio 1.78 MV Decel. Time 157.00 (160-240 ms) MV Mean Gr. 3.80 (<2mmHg) Pulmonary Valve PV Peak Velocity 101.00 (50-150 cm/s) Tricuspid Valve TR P. Velocity 212.00 cm/s RAP Estimate 10.00 mmHg RVSP 28.00 mmHg Left Ventricle History of HCM s/p alcohol septal ablation. The left ventricle is normal size. The left ventricular systolic function is normal. The left ventricular ejection fraction is within the normal range. There is increased LV wall thickness. There is no evidence of LVOT obstruction at rest. Basal septal hypokinesis, consistent with prior history of alcohol septal ablation. No other regional wall motion abnormalities. Diastolic function is indeterminate due to HCM. LVEF is 55-60% Right Ventricle The right ventricle is normal size. The right ventricular systolic function is normal. Atria The left atrium size is normal. The right atrium size is normal. No Doppler evidence of interatrial shunt. Aortic Valve The aortic valve opens well. There is no aortic valvular stenosis. Trace aortic regurgitation. Mitral Valve Systolic anterior motion (HÉCTOR) is present but without septal contact. There is mild mitral annular calcification (MAC). The mitral valve leaflets are mildly thickened. There is a round hyperechoic fixed mass located along the posterior annulus of the mitral valve. This possibly reflects mitral annular calcification (MAC) or old calcified vegetation, but alternative etiologies cannot be ruled out. No evidence of mitral valve stenosis. Mild mitral regurgitation. Tricuspid Valve The tricuspid valve leaflets are thin and pliable. Trace tricuspid regurgitation. RVSP is normal. Pulmonic Valve The pulmonary valve is normal in structure. Trace pulmonic regurgitation. Great Vessels The aortic root is normal in size. The ascending aorta is not well visualized. IVC is normal in size and collapses >50% with inspiration. Pericardium There is no pericardial effusion. Other Information Study Quality: Fair Conclusion History of HCM s/p alcohol septal ablation. Normal LV systolic function. No evidence of LVOT obstruction at rest in this study. Basal septal hypokinesis, consistent with prior history of alcohol septal ablation. No other regional wall motion abnormalities. Systolic anterior motion (HÉCTOR) is present but without septal contact. Round hyperechoic fixed mass located
[2023-08-03] VITALS (9 sets, daily range): BP systolic 117–146; BP diastolic 62–74; PULSE 70–90; RESP 18; TEMP 36.6–37.2; O2SAT 94–100; BMI 28.8
[2023-08-03 06:27] LABS: Basophils % 0.2 % (0.1-2.0); Eosinophils # 0.1 K/mm3 (0.0-0.4); Eosinophils % 0.5 % (0.1-12.0); Hematocrit 43.2 % (42.0-52.0); Hemoglobin 13.9 g/dL (14.1-18.0); Lymphocytes # 1.4 K/mm3 (0.7-4.5); Lymphocytes % 8.8 % (10-50); Mean Corpuscular HGB Conc 32.2 g/dL (31.8-35.4); Mean Corpuscular Hemoglobin 31.1 pg (27.0-31.2); Mean Corpuscular Volume 96.6 fl (80-94); Mean Platelet Volume 9.4 fl (7.4-10.4); Monocytes # 0.8 K/mm3 (0.1-1.0); Monocytes % 5.2 % (1.7-9.3); Neutrophils # 13.4 K/mm3 (1.8-7.8); Neutrophils % 85.2 % (37.0-80.0); Platelet Count 210 K/mm3 (142-424); Red Blood Count 4.47 M/mm3 (4.60-6.20); Red Cell Distribution Width 13.2 % (11.5-17.5); White Blood Count 15.7 K/mm3 (4.8-10.8)
[2023-08-03 06:29] LABS: MANUAL DIFFERENTIAL MANUAL DIFFERENTIAL (MANUAL DIFF)
[2023-08-03 06:40] LABS: Alanine Aminotransferase 38 U/L (12-78); Albumin Level 3.3 g/dl (3.5-5.0); Albumin/Globulin Ratio 1.2 (1.1-1.8); Alkaline Phosphatase 82 U/L (38-126); Anion Gap 10.4 mEq/L (5-15); Aspartate Amino Transferase 45 U/L (17-59); Bilirubin,Total 0.7 mg/dl (0.2-1.3); Blood Urea Nitrogen 8 mg/dl (9-20); Calcium 7.8 mg/dl (8.4-10.2); Carbon Dioxide 22 mmol/L (22.0-30.0); Chloride 104 mmol/L (98-107); Creatinine Clearance Estimated 188 mL/min (50-200); Estimated Glomerular Filt Rate 142 ml/min (>60); GFR (African American) 172 ML/MIN (>60); Globulin 2.8 g/dL (1.3-3.2); Glucose 111 mg/dl (74-100); Magnesium 1.9 mg/dl (1.6-2.3); Potassium 3.4 mmoL/L (3.5-5.1); Sodium 133 mmol/L (136-145); Total Protein,Serum 6.1 g/dl (6.3-8.2)
[2023-08-03 07:36] LABS: Lymphocytes % 6 % (10-50); Monocytes % 5 % (2-9); Neutrophils % 89 % (42-76); Platelet Estimate Normal; RBC Morphology Normal; Total Cells Counted 100
--- NOTE | 2023-08-03 08:02 | EXP.DC.SUM ---
General Admission date:: 08/01/23 Discharge date: 08/03/23 HPI HPI HPI: Patient is a 53-year-old male from [place] who had presented to the emergency department at [facility] with complaints of chest pain radiating down his left arm. He also had chills and felt sick. He described heart palpitations. Upon presentation to the emergency department in [facility] he was found to be in SVT with heart rate of 220. Reportedly he was given 6 mg of adenosine without response. He was given intravenous beta-blockers which resulted in rate control. He was given aspirin and started on heparin drip. Dr. Crow was contacted and arrangements were made for direct admission to the hospitalist service for management of SVT and non-STEMI. Patient apparently has history of previous ablation, hypertrophic obstructive cardiomyopathy, hypertension, hyperlipidemia and tobacco abuse. He is a smoker. He was admitted for inpatient management. He does have findings consistent with sepsis and physical exam revealed scrotal abscess. He had a leukocytosis of 30,000. He is on a heparin drip for cardiac ischemia and troponin trended to 16. Patient states that the area in the scrotum has been present for up to 2 years. He has no tenderness. He has had some drainage. Hospital Course Hospital Course Hospital Course: 53 year old male sent to [facility] for dircet admission from the ED at [facility]. The ED physician consulted Dr. Crow and Dr. Mendiola for the direct admission. He went to the [facility] ED and was found to be in SVT with a heart rate in the 220's. Responded to metoprolol with improvement in heart rate. Upon arrival to [facility], found to be in sepsis. Initiated on broad-spectrum antibiotics with cefepime and vancomycin. Unclear source at this time however differential includes bacteremia or scrotal abscess. Afebrile this morning. Heart rate controlled on metoprolol. Cardiology and surgery consulted, appreciate their assistance in care. Continues to require inpatient management. Troponin elevating overnight. Problems addressed as follows: Sepsis Scrotal abscess versus suppurative hidradenitis -Blood cultures obtained, on admission. Patient was started on broad-spectrum antibiotics with vancomycin and cefepime. Leukocytosis improved from 30,000-15,000 by day of discharge. Clinically symptoms defervesced and was afebrile during admission. Surgery was consulted, recommended CT of the abdomen which did not show ramiro abscess or other pathology for infection. Patient was found to have suppurative hidradenitis in his groin on left side of scrotum. At this time there is no alternative etiology for his sepsis/infection. Cultures were obtained showing gram-negative rods. We will continue treatment with levofloxacin at discharge to complete 10 days total of antibiotics. SVT NSTEMI -c/o CP that radiated down his left arm. He states that the night before admission he started to feel chills and sick. Pain resolved shortly thereafter. Troponin peaked after presentation at 18.8. Improved to 3 by day of discharge. Patient had no further episodes of chest pain after his SVT. EKG showed no ST elevation or ischemic changes. Cardiology was consulted and recommended further outpatient work-up for ischemia after patient's sepsis and infection resolves. Was monitored on telemetry with no further events during hospitalization. Initiated on metoprolol 50 mg twice daily to help control heart rate, transitioned to 100 mg metoprolol succinate at discharge for ease of dosing and maximal rate control. Echo obtained, read below. Patient had nodule on mitral valve. Has been present for some time. Clinically he did not have any positive blood cultures, low concern for endocarditis. No risk factors for endocarditis either aside from smoldering infection with hidradenitis. CCTA results CAC score of 433 with concern for obstructive C
[2023-08-03 08:29] LABS: Troponin I 3.47 ng/ml (0.00-0.034)
--- NOTE | 2023-08-03 08:35 | EXP.SURG.PN ---
Subjective Patient reports: no new complaints Exam Data for Last 24 hours Vital signs and Labs for Last 24 Hours: Temp Pulse Resp BP Pulse Ox O2 Del Method 97.9 F 87 18 146/74 H 98 Room Air 08/03/23 07:58 08/03/23 07:58 08/03/23 07:58 08/03/23 07:58 08/03/23 07:58 08/03/23 07:58 Laboratory Results - last 24 hr 08/01/23 16:46: Urine Color Yellow, Urine Appearance Clear, Urine pH 6.5, Ur Specific [place] 1.010, Urine Protein Trace, Urine Glucose (UA) Negative, Urine Ketones Negative, Urine Blood Negative, Urine Nitrate Negative, Urine Bilirubin Negative, Urine Urobilinogen >=8.0, Ur Leukocyte Esterase Negative, Urine RBC None, Urine WBC 3-5, Ur Squamous Epith Cells Occasional, Urine Bacteria None 08/02/23 02:48: Magnesium 2.0 08/02/23 10:24: APTT 43.3 H 08/03/23 05:45: WBC 15.7 H D, RBC 4.47 L, Hgb 13.9 L, Hct 43.2, MCV 96.6 H, MCH 31.1, MCHC 32.2, RDW 13.2, Plt Count 210, MPV 9.4, Neut % (Auto) 85.2 H, Lymph % (Auto) 8.8 L, [place] % (Auto) 5.2, Eos % (Auto) 0.5, Baso % (Auto) 0.2, Neut # (Auto) 13.4 H, Lymph # (Auto) 1.4, [place] # (Auto) 0.8, Eos # (Auto) 0.1, Baso # (Auto) 0.0, Total Counted 100, Neutrophils % (Manual) 89 H, Lymphocytes % (Manual) 6 L, Monocytes % (Manual) 5, Platelet Estimate Normal, RBC Morphology Normal, Sodium 133 L, Potassium 3.4 L, Chloride 104, Carbon Dioxide 22, Anion Gap 10.4, BUN 8 L D, Creatinine 0.60 L, Estimated Creat Clear 188, Estimated GFR 142, Est GFR ( Amer) 172, Glucose 111 H, Calcium 7.8 L, Magnesium 1.9, Total Bilirubin 0.7, AST 45 D, ALT 38, Alkaline Phosphatase 82, Troponin I 3.47 H, Total Protein 6.1 L, Albumin 3.3 L, Globulin 2.8, Albumin/Globulin Ratio 1.2 I & O for Last 24 hours: Intake & Output 07/31/23 08/01/23 08/02/23 08/03/23 11:59 11:59 11:59 11:59 Intake Total 0 / 0 1340 / 1340 Output Total 650 / 650 1800 / 1800 Balance -650 / -650 -460 / -460 Weight 199 lb 8.999 oz 201 lb 6.997 oz Microbiology Reports for the Last 24 Hours: Microbiology 08/01/23 21:10 Scrotum Gram Stain - Final 08/01/23 21:10 Scrotum Wound Culture - Preliminary Constitutional Constitutional: no acute distress *Routine Respiratory Exam Respiratory: Absent respiratory distress *Routine Cardiovascular Exam Cardiovascular: Absent tachycardia *Routine Exam Comments: Unchanged from prior --> Left scrotal induration. Minimal drainage of serous fluid. No erythema/cellulitis. No fluctuance. Progress Note: A&P Assessment and plan (1) Sepsis: Status: Acute Assessment and plan: Etiology is unlikely the chronic scrotal hidradenitis/draining abscess (2) Scrotal abscess: Problem details: Draining chronic abscess/hidradenitis . Status: Acute Assessment and plan: No evidence of acute or spreading infectious etiology with regard to scrotum. This is very unlikely the etiology of the patient's recent sepsis diagnosis. Continue management as per primary service and cardiology Discussion with regard to future surgical management (once cleared medically) will be ongoing (likely deferred to urology)
[2023-08-03 08:39] LABS: Vancomycin,Trough 9.2 ug/mL (5.0-10.0)
--- NOTE | 2023-08-03 09:53 | EXP.PHA.CONS ---
Pharmacy Consult Date: 08/03/23 Time: 09:53 Referring provider: DR ALFORD Reason for Consult:: VANCOMYCIN TROUGH LEVEL OBTAINED Allergies Allergy/AdvReac Type Severity Reaction Status Date / Time No Known Allergies Allergy Verified 05/10/23 09:38 Home Medications Medication Instructions Recorded Confirmed Type triamterene 75 1 tab PO DAILY Fluid 05/07/18 08/01/23 History mg-hydrochlorothiazide 50 mg tablet valacyclovir 500 mg tablet 500 mg PO DAILY Infection 05/07/18 08/01/23 History atorvastatin 20 mg tablet 20 mg PO DAILY Cholesterol 07/31/18 08/01/23 History aspirin 81 mg capsule 81 mg PO DAILY Heart Health 08/01/23 08/01/23 History lisinopril 20 mg tablet 20 mg PO DAILY High Blood Pressure 08/01/23 08/02/23 History metoprolol tartrate 100 mg tablet 100 mg PO DAILY High Blood Pressure 08/01/23 08/02/23 History New Prescriptions to Start Prescriptions: Height: 1.78 m Weight: 91.37 kg Laboratory Results:: Laboratory Results - last 24 hr 08/01/23 16:46: Urine Color Yellow, Urine Appearance Clear, Urine pH 6.5, Ur Specific [place] 1.010, Urine Protein Trace, Urine Glucose (UA) Negative, Urine Ketones Negative, Urine Blood Negative, Urine Nitrate Negative, Urine Bilirubin Negative, Urine Urobilinogen >=8.0, Ur Leukocyte Esterase Negative, Urine RBC None, Urine WBC 3-5, Ur Squamous Epith Cells Occasional, Urine Bacteria None 08/02/23 02:48: Magnesium 2.0 08/02/23 10:24: APTT 43.3 H 08/03/23 05:45: WBC 15.7 H D, RBC 4.47 L, Hgb 13.9 L, Hct 43.2, MCV 96.6 H, MCH 31.1, MCHC 32.2, RDW 13.2, Plt Count 210, MPV 9.4, Neut % (Auto) 85.2 H, Lymph % (Auto) 8.8 L, [place] % (Auto) 5.2, Eos % (Auto) 0.5, Baso % (Auto) 0.2, Neut # (Auto) 13.4 H, Lymph # (Auto) 1.4, [place] # (Auto) 0.8, Eos # (Auto) 0.1, Baso # (Auto) 0.0, Total Counted 100, Neutrophils % (Manual) 89 H, Lymphocytes % (Manual) 6 L, Monocytes % (Manual) 5, Platelet Estimate Normal, RBC Morphology Normal, Sodium 133 L, Potassium 3.4 L, Chloride 104, Carbon Dioxide 22, Anion Gap 10.4, BUN 8 L D, Creatinine 0.60 L, Estimated Creat Clear 188, Estimated GFR 142, Est GFR ( Amer) 172, Glucose 111 H, Calcium 7.8 L, Magnesium 1.9, Total Bilirubin 0.7, AST 45 D, ALT 38, Alkaline Phosphatase 82, Troponin I 3.47 H, Total Protein 6.1 L, Albumin 3.3 L, Globulin 2.8, Albumin/Globulin Ratio 1.2 08/03/23 08:00: Vancomycin Trough 9.2 Medical History: Medical History (Updated 08/03/23 @ 08:40 by Brenden Lugo MD) Colonoscopy planned HLD (hyperlipidemia) Hypertrophic obstructive cardiomyopathy (HOCM) Mitral regurgitation Assessment and Plan Assessment and plan all Dx Assessment and Plan for all problems:: Pharmacokinetic dosing service Weight: 91.37 Kilograms Vancomycin single level analysis: Current dose being given: 1500 mg Current dosing interval: 8 hrs Current infusion time (hrs): 2 Single level Trough Data: Trough level obtained: 9.2 mcg/ml Timing of trough - # of hrs before next dose: 0.5 Hrs Desired peak: 35 mcg/ml Desired trough: 12.5 mcg/ml Diagnosis: ABSCESS Estimated PK Parameters: New rate constant (william): 0.169 hr-1 Half-life: 4.10 Hours Vd from levels: 63.96 Liters (0.7 L/kg) CLvanco=?? 10.809 L/hr Estimated New Dose and Interval Recommended dose: 1967.1 mg Recommended interval: 8.1 Hrs Recommendations: Give Vancomycin 1750 mg q 8 hrs. Infuse over 2 hrs Expected Cpeak: 31.3 mcg/mL Expected Ctrough: 11.4 mcg/mL AUC 0-24 /BRET Data: BRET 0.5 mcg/mL:?? AUC/BRET:? 971.4 BRET 1.0 mcg/mL:?? AUC/BRET:? 485.7 Thank you for the consult
--- NOTE | 2023-08-03 10:47 | EXP.CARD.PN ---
Subjective Subjective Date: 08/03/23 Time: 10:47 Principal diagnosis: SVT Interval history: 53 yo WM in bed in NAD. CCTA results pending Trop down to 3 WBC near normal Telemetry is sinus with no recurrent significant arrhythmias. Exam Data for Last 24 hours Vital signs and Labs for Last 24 Hours: Temp Pulse Resp BP Pulse Ox O2 Del Method 97.9 F 81 18 146/74 H 98 Room Air 08/03/23 07:58 08/03/23 09:25 08/03/23 07:58 08/03/23 07:58 08/03/23 08:00 08/03/23 10:45 Laboratory Results - last 24 hr 08/01/23 16:46: Urine Color Yellow, Urine Appearance Clear, Urine pH 6.5, Ur Specific [place] 1.010, Urine Protein Trace, Urine Glucose (UA) Negative, Urine Ketones Negative, Urine Blood Negative, Urine Nitrate Negative, Urine Bilirubin Negative, Urine Urobilinogen >=8.0, Ur Leukocyte Esterase Negative, Urine RBC None, Urine WBC 3-5, Ur Squamous Epith Cells Occasional, Urine Bacteria None 08/02/23 10:24: APTT 43.3 H 08/03/23 05:45: WBC 15.7 H D, RBC 4.47 L, Hgb 13.9 L, Hct 43.2, MCV 96.6 H, MCH 31.1, MCHC 32.2, RDW 13.2, Plt Count 210, MPV 9.4, Neut % (Auto) 85.2 H, Lymph % (Auto) 8.8 L, Wolfe % (Auto) 5.2, Eos % (Auto) 0.5, Baso % (Auto) 0.2, Neut # (Auto) 13.4 H, Lymph # (Auto) 1.4, Wolfe # (Auto) 0.8, Eos # (Auto) 0.1, Baso # (Auto) 0.0, Total Counted 100, Neutrophils % (Manual) 89 H, Lymphocytes % (Manual) 6 L, Monocytes % (Manual) 5, Platelet Estimate Normal, RBC Morphology Normal, Sodium 133 L, Potassium 3.4 L, Chloride 104, Carbon Dioxide 22, Anion Gap 10.4, BUN 8 L D, Creatinine 0.60 L, Estimated Creat Clear 188, Estimated GFR 142, Est GFR ( Amer) 172, Glucose 111 H, Calcium 7.8 L, Magnesium 1.9, Total Bilirubin 0.7, AST 45 D, ALT 38, Alkaline Phosphatase 82, Troponin I 3.47 H, Total Protein 6.1 L, Albumin 3.3 L, Globulin 2.8, Albumin/Globulin Ratio 1.2 08/03/23 08:00: Vancomycin Trough 9.2 I & O for Last 24 hours: Intake & Output 07/31/23 08/01/23 08/02/23 08/03/23 11:59 11:59 11:59 11:59 Intake Total 0 / 0 1340 / 1340 Output Total 650 / 650 1800 / 1800 Balance -650 / -650 -460 / -460 Weight 199 lb 8.999 oz 201 lb 6.997 oz Microbiology Reports for the Last 24 Hours: Microbiology 08/01/23 21:10 Scrotum Gram Stain - Final 08/01/23 21:10 Scrotum Wound Culture - Preliminary Constitutional Constitutional: no acute distress *Routine Respiratory Exam Respiratory: Present CTA bilaterally *Routine Cardiovascular Exam Cardiovascular: Present RRR *Routine Neurological Exam Neurological: Present alert and oriented X3 Progress Note: A&P Assessment and plan (1) Sepsis: Status: Acute (2) Scrotal abscess: Problem details: Draining chronic abscess/hidradenitis . Status: Acute (3) SVT (supraventricular tachycardia): Status: Acute (4) NSTEMI (non-ST elevated myocardial infarction): Status: Acute Assessment and Plan Assessment and Plan for All Diagnoses:: 1. Sepsis -Blood cultures pending but no growth thus far -On vancomycin and cefepime -WBC near normal 2. Mitral valve abnormality on echocardiogram dating back to 2020 appears to be a calcified mass and does not appear to be endocarditis -Discussed with Dr. Gamez who recommends antibiotic therapy guided by blood culture results 3. SVT related to sepsis -Converted with IV metoprolol after failed attempts with 2 doses of IV adenosine -Elevated troponin in the 16-18.8 range overnight but now down to 3 -continue metoprolol 4. Non-STEMI secondary to SVT -Echocardiogram this admit shows normal LVEF with basal septal hypokinesis consistent with prior alcohol septal ablation. No change compared to 11/2022 echo. 5. History of HOCM, status post alcohol ablation in 2017 -Continue beta-maame and resume lisinopril therapy if blood pressure tolerates 6. Hyperlipidemia -Continue statin therapy If CCTA is without obstructive CAD, then he should be stable for discharge home today. Home med recommendation
--- NOTE | 2023-08-06 15:47 | CARE MANAGER ---
Contacted patient related to hospital discharge. He states he is doing better. He is aware of follow up appt. with Dr. Crow, but plans on calling general surgery tomorrow for follow up. He picked up new medications and denies questions or concerns. BELEN Quinones
== END 2023-08-03 17:25 | disposition home or self-care (01) | DRG 280 ==
PROVIDERS: Nurse Practitioner Critical Care Medicine; Physician Assistant; Admitting Provider Internal Medicine Adolescent Medicine; PCP Internal Medicine; Visit Provider Internal Medicine Adolescent Medicine
DX: I21.4 Non-ST elevation (NSTEMI) myocardial infarction (principal); A41.9 Sepsis, unspecified organism; R65.20 Severe sepsis without septic shock; G72.81 Critical illness myopathy; I47.1 Supraventricular tachycardia; I42.1 Obstructive hypertrophic cardiomyopathy; N49.2 Inflammatory disorders of scrotum; I10 Essential (primary) hypertension; E78.5 Hyperlipidemia, unspecified; E78.2 Mixed hyperlipidemia; I34.0 Nonrheumatic mitral (valve) insufficiency; L73.2 Hidradenitis suppurativa; F17.210 Nicotine dependence, cigarettes, uncomplicated
CPT/HCPCS: 36415; 71045; 74176; 75574; 80048; 80053; 80061; 80202; 81001; 83605; 83735; 83880; 84484; 85007; 85025; 85730; 87040; 87070; 87077; 87086; 87186; 87205; 87581; 87632; 87798; 93005; 93306; 94640; J1956; Q9967

== ENCOUNTER 2023-10-18 07:17 | Day surgery (SDC) | payer BC, SELFPAY ==
[2023-10-18] VITALS (10 sets, daily range): BP systolic 103–164; BP diastolic 51–111; PULSE 66–78; RESP 16–18; O2SAT 95–97; BMI 31.6
--- NOTE | 2023-10-18 07:16 | IR_ITS ---
APPROVED REPORT Patient Location: Outpatient Metallurgical [facility] Materials Technician: PAULETTE Mccarthy RT (R) PROCEDURES Left heart catheterization Left ventriculogram Selective coronary angiogram INDICATION Abnormal CCTA, Risk factors for coronary artery disease, Angina pectoris Informed consent was obtained prior to the procedure. COMPLICATIONS None Estimated Blood Loss: Less than 10 mls TECHNIQUE One percent lidocaine used to anesthetize the right anterior aspect of the wrist. The right radial artery was accessed via the Seldinger technique. A 6 [place] sheath was placed in the right radial artery. 2.5 mg of Verapamil, 800 mcg of nitroglycerin, 1mg Lidocaine and 5000 U Heparin were given through the arterial sheath. The papa catheter was also used to perform left heart catheterization, left ventriculogram and selective coronary angiogram. At the end of the procedure the sheath was removed good hemostasis was achieved using Traclet band, patient was transferred to the postop holding area in stable condition. ANGIOGRAPHIC RESULTS The left main artery Normal The left anterior descending artery Proximally normal with mid vessel 10% luminal irregularities accompanied by a 40% systolic myocardial bridge The circumflex artery Large dominant normal The right coronary artery Nondominant normal The HUANG ventriculogram reveals Normal 65% The left ventricular end-diastolic pressure 15 mmHg IMPRESSION Mid LAD myocardial bridge which compresses at 40% during systole at rest Normal ejection fraction Normal left ventricular end-diastolic pressure PLAN 1. Medical management Electronically signed by : Luis Enrique Crow MD 10/18/2023 10:16:24
[2023-10-18 08:29] LABS: Basophils % 0.4 % (0.1-2.0); Eosinophils # 0.3 K/mm3 (0.0-0.4); Eosinophils % 4.6 % (0.1-12.0); Hematocrit 45.4 % (42.0-52.0); Lymphocytes # 1.8 K/mm3 (0.7-4.5); Lymphocytes % 24.9 % (10-50); Mean Corpuscular HGB Conc 35.2 g/dL (31.8-35.4); Mean Corpuscular Hemoglobin 32.7 pg (27.0-31.2); Mean Corpuscular Volume 92.9 fl (80-94); Mean Platelet Volume 7.4 fl (7.4-10.4); Monocytes # 0.3 K/mm3 (0.1-1.0); Monocytes % 4.5 % (1.7-9.3); Neutrophils # 4.6 K/mm3 (1.8-7.8); Neutrophils % 65.5 % (37.0-80.0); Platelet Count 203 K/mm3 (142-424); Red Blood Count 4.88 M/mm3 (4.60-6.20); Red Cell Distribution Width 13.3 % (11.5-17.5); White Blood Count 7.1 K/mm3 (4.8-10.8)
[2023-10-18 08:38] LABS: Chloride 101 mmol/L (98-107); Potassium 3.8 mmoL/L (3.5-5.1); Sodium 134 mmol/L (136-145)
[2023-10-18 08:41] LABS: Anion Gap 8.8 mEq/L (5-15); Blood Urea Nitrogen 12 mg/dl (9-20); Calcium 8.4 mg/dl (8.4-10.2); Carbon Dioxide 28 mmol/L (22.0-30.0); Creatinine Clearance Estimated 194 mL/min (50-200); Estimated Glomerular Filt Rate 142 ml/min (>60); GFR (African American) 172 ML/MIN (>60); Glucose 100 mg/dl (74-100)
== END 2023-10-18 13:30 | disposition home or self-care (01) ==
PROVIDERS: PCP Internal Medicine; Visit Provider Internal Medicine
DX: R93.1 Abnormal findings on diagnostic imaging of heart and coronary circulation (principal); E78.5 Hyperlipidemia, unspecified; I10 Essential (primary) hypertension; I25.118 Atherosclerotic heart disease of native coronary artery with other forms of angina pectoris; I34.0 Nonrheumatic mitral (valve) insufficiency; I42.1 Obstructive hypertrophic cardiomyopathy; Z79.899 Other long term (current) drug therapy; I47.10 Supraventricular tachycardia, unspecified
CPT/HCPCS: 80048; 85025; 93458; 99152; C1725; C1760; C1769; J1644; Q9967

== ENCOUNTER 2024-08-18 10:08 | Outpatient (CLI) | payer BC, SELFPAY ==
--- NOTE | 2024-08-18 10:12 | CA_ITS ---
APPROVED REPORT EXAM: Comprehensive 2D, Doppler, and color-flow Echocardiogram [employer] Machine Tender: Aide Valladares RVT Ht: 5 ft 8 in Wt: 209lbs BSA: 2.08 BP: 145/86 mmHg Indications: MAC VS MASS MV (POST. ANNULUS OF MV),HOCM-PRIOR ALCOHOL ABLATION,HTN,HLD,SMOKER 2D Dimensions IVSd 0.96 cm M: 0.6-1.2 LVEF (Visual) 51.70 % PWd 0.94 cm M: 0.6 - 1.2 LA Volume 60.40 mL LVDd 5.15 cm M: 4.2 - 5.9 LA Volume Index 29.04 mL/m2 (M/F) 16-34 LVDs 3.78 cm M: 2.5 - 4.0 M-Mode Dimensions LA Diam 3.71 cm (1.9-4.0) TAPSE 2.94 (<1.7) LV Diastology E Decel Time 257 (160-240 msec) E/A Ratio 0.8 Aortic Valve JASMEET Index 3.00 cm2/m2 AoV Peak Simon. 162.0 (50-130 cm/s) AO Peak GR. 10.50 mmHg AO Mean GR. 5.90 (<5 mmHg) AO VTI 31.8 (18-25 cm) JASMEET (VTI) 6.38 (2.5-4.5 cm2) Mitral Valve MV E Max Simon. 82.0 (40-130 cm/s) MV A Velocity 103.0 (40-130 cm/s) E/A Ratio 0.79 MV Mean Gr. 2.20 (<2mmHg) MV PHT 75.0 ms Pulmonary Valve PV Peak Velocity 95.0 (50-150 cm/s) Left Ventricle Known history of HCM. The left ventricle is normal size. The left ventricular systolic function is normal. The left ventricular ejection fraction is within the normal range. There is increased LV wall thickness. There is no evidence of LVOT obstruction at rest. There is moderate hypokinesis of the basal septal LV wall, consistent with prior history of alcohol septal ablation. Diastolic function is indeterminate. LVEF is 55%. Right Ventricle The right ventricle is normal size. The right ventricular systolic function is normal. Atria The left atrium size is normal. The right atrium size is normal. There is no Doppler evidence of interatrial shunt. Aortic Valve Aortic valve is mildly thickened. Trace aortic regurgitation. There is no aortic valvular stenosis. Mitral Valve There is moderate mitral annular calcification. The mitral valve leaflets are mildly thickened. There is systolic anterior motion of the mitral valve leaflets, but with no evidence of septal contact. No evidence of mitral valve stenosis. Mild mitral regurgitation. Tricuspid Valve The tricuspid valve leaflets are thin and pliable. Trace tricuspid regurgitation. There is insufficient TR jet to estimate RVSP. Pulmonic Valve The pulmonary valve is normal in structure. Trace pulmonic regurgitation. Great Vessels The aortic root is not well-visualized. IVC is normal in size and collapses >50% with inspiration. Pericardium There is no pericardial effusion. Other Information Study Quality: Fair Conclusion Patient has known history of HCM. Normal biventricular systolic function. Moderate hypokinesis of the basal septal LV wall, consistent with prior history of alcohol septal ablation. HÉCTOR with no evidence of septal contact. No evidence of LVOT obstruction at rest. Moderate mitral annular calcification. No evidence of MS. Mild MR. Electronically signed by : Phyllis Gamez MD 08/20/2024 00:21:06
== END 2024-08-18 23:59 | disposition home or self-care (01) ==
LOC: RT 10:09
PROVIDERS: PCP Internal Medicine; Visit Provider Nurse Practitioner
DX: I51.89 Other ill-defined heart diseases (principal); I42.1 Obstructive hypertrophic cardiomyopathy
CPT/HCPCS: 93306